=== PATIENT | female | born 1925 | race Caucasian/White ===

== ENCOUNTER 2016-11-27 22:30 | Emergency (ER) | payer MEDICARE, BC ==
--- NOTE | 2016-11-27 23:21 | EDM.PDOC ---
ED HPI GENERAL MEDICAL PROBLEM - General Chief Complaint: Neurological Problem Stated Complaint: confusion Time Seen by Provider: 11/27/16 23:15 Source of Information: Reports: Patient, Family () History Limitations: Reports: No Limitations - History of Present Illness INITIAL COMMENTS - FREE TEXT/NARRATIVE: STATES PT HAS BECOME INCREASINGLY CONFUSED OVER PAST FEW DAYS. RECENT MEDICATION CHANGE BY DR DE PAZ LAST WEEK. INCREASE CYMBALTA TO BID AND D/C [facility] BUT RESTARTED [facility] BECAUSE HE THOUGHT SHE NEEDED MEDICATION. DENIES CP, SOB, PAULA, FALL, N/V/D, FEVER, OR C/O ANY PAIN. Onset: Gradual Severity: Mild Improves with: Reports: None Worsens with: Reports: None Associated Symptoms: Reports: Confusion - Related Data Allergies Allergy/AdvReac Type Severity Reaction Status Date / Time No Known Drug Allergies Allergy Other Verified 11/27/16 23:01 Home Meds: Home Meds Calcium Carbonate 500 mg PO TID 06/13/13 [History] Cholecalciferol (Vitamin D3) [Vitamin D3] 1,000 unit PO DAILY 06/13/13 [History] Cinnamon* 500 mg PO DAILY 06/13/13 [History] Fiber Gummy* 1 tab PO DAILY 06/13/13 [History] Latanoprost [Xalatan 0.005% Ophth Soln] 1 drop EYEBOTH BEDTIME 06/13/13 [History ] Multivits,Th w-Fe,Other Min [Complete Multivitamin] 1 tab PO DAILY 06/13/13 [ History] Timolol Maleate [Timoptic 0.5% Ophth Soln] 1 drop EYEBOTH DAILY 06/13/13 [ History] Acetaminophen 2 tab PO Q4H PRN 02/02/14 [History] Carbidopa/Levodopa [Sinemet Cr 25-100 mg] 1 tab PO 0800,1600 #60 tab.er [Rx] Albuterol/Ipratropium [DuoNeb 3.0-0.5 MG/3 ML] 3 ml NEB Q4HRRT PRN #60 neb 05/01 [Rx] Donepezil HCl 10 mg PO BEDTIME 01/01/15 [History] Liothyronine [Cytomel] 5 mcg PO DAILY 01/01/15 [History] Ondansetron [Zofran ODT] 4 mg PO Q6H PRN 01/01/15 [History] traMADol [Ultram] 50 - 100 mg PO Q4H PRN 01/01/15 [History] DULoxetine [Cymbalta] 30 mg PO DAILY 01/25/15 [History] Furosemide 40 mg PO BID 01/25/15 [History] Melatonin/Pyridoxine HCl (B6) [Melatonin 3 mg Tablet] 3 mg PO BEDTIME 01/25/15 [ History] Omeprazole 20 mg PO DAILY 01/25/15 [History] Oxybutynin Chloride [Ditropan Xl] 5 mg PO BEDTIME 01/25/15 [History] Rivaroxaban [Xarelto] 10 mg PO BEDTIME 01/25/15 [History] Sennosides/Docusate Sodium [Senna-Docusate Sodium] 2 tab PO DAILY 01/25/15 [ History] Fluconazole [Diflucan] 150 mg PO DAILY 7 Days 02/24/15 [Rx] Magnesium Oxide 500 mg PO DAILY tablet 02/24/15 [Rx] Potassium Chloride [Klor-Con M20] 40 meq PO DAILY tab.er 02/24/15 [Rx] Cephalexin [Keflex] 500 mg PO BID #10 cap 11/27/16 [Rx] Past Medical History - Past Surgical History Other Musculoskeletal Surgeries/Procedures:: hip fixation Social & Family History - Tobacco Use Smoking Status *Q: Former Smoker Years of Tobacco use: 15 Used Tobacco, but Quit: Yes Month Tobacco Last Used: 1954 Second Hand Smoke Exposure: No - Alcohol Use Days Per Week of Alcohol Use: 0 Number of Drinks Per Day: 1 Total Drinks Per Week: 0 - Recreational Drug Use Recreational Drug Use: No Drug Use in Last 12 Months: No - Living Situation & Occupation Living situation: Reports: , with Spouse, Other Occupation: Other ED ROS GENERAL - Review of Systems Review Of Systems: ROS reveals no pertinent complaints other than HPI. Constitutional: Reports: No Symptoms HEENT: Reports: No Symptoms Respiratory: Reports: No Symptoms Cardiovascular: Reports: No Symptoms Endocrine: Reports: No Symptoms GI/Abdominal: Reports: No Symptoms : Reports: No Symptoms Musculoskeletal: Reports: No Symptoms Skin: Reports: No Symptoms Neurological: Reports: Confusion Psychiatric: Reports: No Symptoms Hematologic/Lymphatic: Reports: No Symptoms Immunologic: Reports: No Symptoms ED EXAM, GENERAL - Physical Exam Exam: See Below Exam Limited By: Other (CHRONIC DEMENTIA) General Appearance: Alert, WD/WN, No Apparent Distress Eye Exam: Bilateral Eye: Normal Inspection Nose: Normal Inspection, Normal Mucosa, No Blood Throat/Mouth: Normal Inspection, Normal Oropharynx, No Airway Compromise Head: Atraumatic, Normocephalic Neck: Normal Inspection, Supple, Non-Tender Respiratory/Chest: No Respiratory Distress, Lungs Clear, Normal Breath Sounds, No Accessory Muscle Use, Chest Non-Tender Cardiovascular: Regular Rate, Rhythm, No Murmur GI/Abdominal: Normal Bowel Sounds, Soft, Non-Tender, No Distention, No Mass Back Exam: Normal Inspection. No: CVA Tenderness (L), CVA Tenderness (R) Extremities: Normal Inspection Neurological: Alert, Disoriented (OF CHRONIC NATURE) Psychiatric: Normal Affect, Normal Mood Skin Exam: Warm, Dry, Intact, Normal Color, No Rash Lymphatic: No Adenopathy Course - Vital Signs Last Recorded V/S: Last Vital Signs Temp 98.5 F 11/27/16 22:40 Pulse 76 11/27/16 22:40 Resp 16 11/27/16 22:40 BP 146/69 H 11/27/16 22:40 Pulse Ox 94 L 11/27/16 22:40 - Orders/Labs/Meds Orders: Active Orders 24 hr Category Date Time Status CBC WITH AUTO DIFF [HEME] Stat Lab 11/27/16 23:00 Received CMP [COMPREHENSIVE METABOLIC PN,CMP] [CHEM] Stat Lab 11/27/16 22:53 Ordered UA W/MICROSCOPIC [URIN] Stat Lab 11/27/16 22:54 Uncollected - Re-Assessments/Exams Free Text/Narrative Re-Assessment/Exam: 11/27/16 23:51 PT AFEBRILE, NONTOXIC APPEARING, VSS. DISCUSSED WITH NEED TO FOLLOW DIRECTIONS PER DR RAYMUNDO AND F/U AT CLINIC ON SUNDAY Departure - Departure Time of Disposition: 23:53 Disposition: Home, Self-Care 01 Condition: Good Clinical Impression: Dementia Qualifiers: Dementia type: unspecified type UTI (urinary tract infection) Qualifiers: Urinary tract infection type: acute cystitis Hematuria presence: without hematuria Qualified Code(s): N30.00 - Acute cystitis without hematuria - Discharge Information Instructions: Dementia, [id number], Urinary Tract Infection, Adult Referrals: Keyona Altamirano A, MD [Physician] - Forms: ED Department Discharge Additional Instructions: FOLLOW UP WITH DR RAYMUNDO ON SUNDAY. CALL CLINIC ON SUNDAY TO SCHEDULE APPOINTMENT TIME. RETURN TO ER SOONER IF SYMPTOMS CONTINUE - My Orders Last 24 Hours: My Active Orders 11/27/16 22:53 CMP [COMPREHENSIVE METABOLIC PN,CMP] [CHEM] Stat 11/27/16 22:54 UA W/MICROSCOPIC [URIN] Stat 11/27/16 23:00 CBC WITH AUTO DIFF [HEME] Stat - Assessment/Plan Last 24 Hours: My Active Orders 11/27/16 22:53 CMP [COMPREHENSIVE METABOLIC PN,CMP] [CHEM] Stat 11/27/16 22:54 UA W/MICROSCOPIC [URIN] Stat 11/27/16 23:00 CBC WITH AUTO DIFF [HEME] Stat Assessment:: UTI Plan: KEFLEX / FOLLOW UP WITH PCP
[2016-11-27 23:30] LABS: CHLORIDE,CL 99 mmol/L (98-115); SODIUM,NA 135 mmol/L (136-145)
[2016-11-27] MEDS ORDERED: Cephalexin 250 MG Cap PO ONE (23:47)
[2016-11-27] MEDS ORDERED: cefTRIAXone 1 GM Vial IM ONE (23:47)
[2016-11-27] MEDS ORDERED: Lidocaine 1% 20 ML MDV ONE (23:54)
[2016-11-28 00:29] VITALS: BP 151/78
[2016-11-29] MEDS ORDERED: Lidocaine 1% 20 ML MDV SUBCUT ONE (12:47)
== END 2016-11-28 00:15 | disposition home or self-care (01) ==
LOC: KA.ED 22:30
DX: F03.90 Unspecified dementia, unspecified severity, without behavioral disturbance, psychotic disturbance, mood disturbance, and anxiety (principal); N30.00 Acute cystitis without hematuria; Z79.899 Other long term (current) drug therapy; Z87.891 Personal history of nicotine dependence
CPT/HCPCS: 36415; 80053; 81001; 85025; 96372; 99285; A9270; J0696